=== PATIENT | female | born 1990 | race Caucasian/White ===

== ENCOUNTER → 2020-11-07 13:27 | Outpatient (CLI) | payer OTHER, SELFPAY ==
[2020-11-07 20:00] LABS: Add Manual Diff / Slide Review NO; Basophils Absolute Auto 100 /uL (0-100); Basophils Percent Auto 0.6 % (0-2); Eosinophils Absolute Auto 100 /uL (0-450); Eosinophils Percent Auto 0.7 % (2-4); Hematocrit 40.3 % (36-46); Hemoglobin 13.5 g/dL (12.0-16.0); Lymphocytes Absolute Auto 2500 /uL (1100-4500); Lymphocytes Percent Auto 28.6 % (25-40); Mean Corpuscular HGB Conc 33.4 % (30-36); Mean Corpuscular Hemoglobin 29.3 PG (26-34); Mean Corpuscular Volume 87.7 fL (80-100); Monocytes Absolute Auto 400 /uL (0-900); Monocytes Percent Auto 4.9 % (3-14); Neutrophils Absolute Auto 5800 /uL (1500-7000); Neutrophils Percent Auto 65.2 % (50-75); Platelet Count 172 X10^3/uL (150-400); White Blood Cell Count 8.9 X10^3/uL (4.5-11.0)
[2020-11-07 20:15] LABS: Alanine Aminotransferase 20 IU/L (<35); Albumin 4.7 g/dL (3.5-5.0); Albumin Globulin Ratio 1.9 (1.0-2.8); Alkaline Phosphatase 54 U/L (38-126); Aspartate Aminotransferase 29 IU/L (14-36); BUN Creatinine Ratio 17.4 (6-22); Bilirubin Total 0.4 mg/dL (0.2-1.3); Blood Urea Nitrogen 12 mg/dL (7-17); Calcium 9.9 mg/dL (8.4-10.2); Carbon Dioxide 27 mmol/L (22-32); Chloride 102 mmol/L (98-107); Estimated Glomerular Filt Rate > 60.0 mL/min (>60); Globulin 2.5 g/dL (1.7-4.1); Glucose 81 mg/dL (70-100); HEMOLYSIS < 15 (0-50); Potassium 4.4 mmol/L (3.4-5.1); Sodium 138 mmol/L (137-145); Total Protein 7.2 g/dL (6.3-8.2)
[2020-11-07 20:27] LABS: Follicle Stimulating Hormone 5.02 mIU/mL; Luteinizing Hormone 4.61 mIU/mL; Progesterone, Total 1.04 ng/mL
[2020-11-07 20:40] LABS: TSH w/ Reflex to FT4 1.27 uIU/mL (0.47-4.68)
[2020-11-07 20:42] LABS: Estradiol, Total 43.4 pg/mL
== END ==
PROVIDERS: PCP Physician Assistant; Visit Provider Physician Assistant
DX: E34.9 Endocrine disorder, unspecified (principal); N94.6 Dysmenorrhea, unspecified; R10.9 Unspecified abdominal pain; R11.2 Nausea with vomiting, unspecified
CPT/HCPCS: 80053; 82670; 83001; 83002; 84144; 84443; 85025

== ENCOUNTER → 2023-10-28 09:57 | Outpatient (CLI) | payer OTHER, SELFPAY ==
[2023-10-28 20:06] LABS: Add Manual Diff / Slide Review NO; Basophils Absolute Auto 100 /uL (0-100); Basophils Percent Auto 0.7 % (0-2); Eosinophils Absolute Auto 100 /uL (0-450); Eosinophils Percent Auto 0.9 % (2-4); Hematocrit 37.7 % (36-46); Hemoglobin 12.6 g/dL (12.0-16.0); Lymphocytes Absolute Auto 1500 /uL (1100-4500); Lymphocytes Percent Auto 16.6 % (25-40); Mean Corpuscular HGB Conc 33.5 % (30-36); Mean Corpuscular Hemoglobin 29.1 PG (26-34); Monocytes Absolute Auto 500 /uL (0-900); Monocytes Percent Auto 5.9 % (3-14); Neutrophils Absolute Auto 6900 /uL (1500-7000); Neutrophils Percent Auto 75.9 % (50-75); Platelet Count 193 X10^3/uL (150-400); Red Blood Cell Count 4.33 X10^6/uL (4.0-5.2); Red Cell Distribution Width 13.8 % (11.6-14.8); White Blood Cell Count 9.1 X10^3/uL (4.5-11.0)
[2023-10-28 20:45] LABS: Ferritin 15 ng/mL (6-137)
== END ==
PROVIDERS: PCP Physician Assistant; Referring Provider Nurse Practitioner Adult Health; Visit Provider Nurse Practitioner Adult Health
DX: Z34.91 Encounter for supervision of normal pregnancy, unspecified, first trimester (principal)
CPT/HCPCS: 82728; 85025

== ENCOUNTER 2024-08-16 14:17 | Outpatient (RCR) | payer OTHER, SELFPAY ==
--- NOTE | 2024-08-16 13:32 | PT.OIE ---
Current Diagnoses Other specified disorders of muscle (08/16/24) Past Medical History (Last Updated 07/11/24 @ 18:18 by Veronika Salazar MD) Anxiety Chicken pox (~1993) Depression History of chorioamnionitis History of Human papilloma virus (~2009) Painful menstrual periods (~2007) Visit Care Team Role Provider Type Veronika Salazar MD Attending Provider Physician Family Provider Primary Care Provider Referring Provider Specialty: Family Practice Address: [address] [place] [address], [facility] Email: [email or web address] Physical Therapy Initial Evaluation PT-OP-A Visit Information Start: 08/16/24 14:26 Freq: Status: Active Protocol: Document 08/16/24 14:30 [facility] (Rec: 08/16/24 15:12 [facility] [id number]) Out-Patient Physical Therapy Visit Information Visit Information Visit Type Initial Evaluation Visit Start Time 14:30 Visit Stop Time 15:15 Visit Number 1 Evaluation Information Evaluation Date 08/16/24 PT-OP-B Current Condition Start: 08/16/24 14:26 Freq: Status: Active Protocol: Document 08/16/24 14:30 [facility] (Rec: 08/16/24 15:12 [facility] [id number]) Current Condition History of Current Condition Onset Date 05/28/24 Current Complaints urinary stress incontinence, pelvic floor weakness, tailbone pain History of Current 33 year old female 11 weeks with vacuum Condition assisted delivery and a few days after delivery. pt has chief complaint of urinary incontinence and notices wetness throughout the day. She states she is not feeling when she is leaking. She is having pain during intercourse and is having some c/o tailbone pain . She feels her upper body and chest is really tight and that she is rounded forward more than prior to her . She has some c/o urethra irritation at the end of voiding. Treatment Goals Patient/Caregiver goals include improving pelvic floor strength and Goals decreasing urinary incontinence as well as decreasing tailbone pain PT-OP-C Subjective Start: 08/16/24 14:26 Freq: Status: Active Protocol: Document 08/16/24 14:30 [facility] (Rec: 08/16/24 16:50 [facility] [id number]) Patient Questionnaires Pelvic Pain and Urgency/Frequency Patient Symptom Scale Pelvic Pain Score 14 PT-OP-I Pelvic Floor Start: 08/16/24 14:26 Freq: Status: Active Protocol: Document 08/16/24 14:30 [facility] (Rec: 08/16/24 16:49 [facility] [id number]) Pelvic Floor Assessment Urine Pelvic Floor Surgery forceps delivery 05/28/24 Other Urinary urinary stress incontinence Symptoms Leakage Size Small Leakage Cause Cough Other Leakage Causes no activity changes leakage it is constant despite activity Nocturia 1 Pelvic Clock Pelvic Clock 12-3 Atrophy Pelvic Clock 3-6 Atrophy,Tenderness,Tightness Pelvic Clock 9-12 Atrophy Pelvic Clock Other tenderness over the right lateral wall of the levator ani with guarding and tightness noted Perineal Descent Resting Absent Bearing Absent Contraction Ability Voluntary Weak Contraction Manual Muscle 2 Testing Left Manual Muscle 2 Testing Right Manual Muscle 1 Testing Anterior Manual Muscle 2 Testing Posterior Muscle Endurance ( 5 Seconds) PT-OP-Q Treatments Start: 08/16/24 14:26 Freq: Status: Active Protocol: Document 08/16/24 14:28 [facility] (Rec: 08/16/24 15:12 [facility] [id number]) Therapeutic Exercises Supine Exercises hip abduction with resistance Equipment Used 2 x 10 reps Reps/Minutes level 3 theraband supine adductor assist with ball Reps/Minutes 10 reps x 5 -10 sec hold PT-OP-T Assessment and Plan Start: 08/16/24 14:26 Freq: Status: Active Protocol: Document 08/16/24 14:30 [facility] (Rec: 08/17/24 13:11 [facility] [id number]) Physical Therapy Assessment Rehab Potential Rehabilitation Excellent Potential Evaluation Complexity Number of Personal 1-2 Factors/ Comorbidities Number of Body 3 Systems Impaired Clinical Stable Presentation at Evaluation Impairments Impairments Activity Tolerance,Soft Tissue Mobility,Strength Goals 3 Impairment urinary incontinence that is constant throughout the day Short Term Goal (STG Jacque reports a overall reduction of urinary ) incontinence and is no longer feeling as if she is always wet STG Duration 5 weeks 2 Impairment Decreased endurance of the pelvic floor Short Term Goal (STG Jacque is able to sustain a pelvic floor contraction in ) supine x 10 seconds STG Duration 5 weeks 1 Impairment post pelvic floor weakness 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 She has chief complaints of pelvic floor weakness with urinary leakage that seems to be constant despite activity. Jacque reports she is not able to feel when she is leaking but not notice she is wet. She is also experiencing some urinary urgency. With exam today there is pelvic floor weakness throughout the levator ani. The anterior pelvic floor tests 1/5 MMT for the anterior pelvic floor and 2/5 for all other mallory of the levator ani. There is scar tissue and guarding on the right lateral wall of the levator ani with tenderness and decreased ability to relax the pelvic floor on the right side. Endurance for all mallory is limited. The perineum appears intact without any tearing. Jacque also reports feeling that her posture is forward including rounded shoulders and forward head. We talked about how changes your center of gravity and we will address the postural dysfunction as well in PT. Jacque is a good candidate for PT and she tolerated today's session well . She does note that she loses her insurance at the end of August so we will work on getting in all her visits by the end of August Physical Therapy Plan Frequency and Duration Frequency of 1x/Week Treatment Duration of 4 treatment (weeks) Plan of Care Start 08/16/24 Date Plan of Care End 09/12/24 Date Therapeutic Interventions Therapeutic Home Exercise Program,Neuromuscular Re-education, Interventions Patient/Caregiver Education,Self-Care/Home Management, Therapeutic Exercises Modalities Biofeedback Next Visit Focus/Plan Next Note Type Treatment Note Next Visit Plan Begin EMG biofeedback for pelvic floor strength and endurance training
--- NOTE | 2024-08-17 13:33 | PT.OPPOC ---
Physical, Occupational & Speech Therapy At [facility] Current Diagnoses Other specified disorders of muscle (08/16/24) Visit Care Team Role Provider Type Veronika Salazar MD Attending Provider Physician Family Provider Primary Care Provider Referring Provider Specialty: Family Practice Address: [address] [place] [address], [id number] Email: [email or web address] Plan Of Care PT-OP-B Current Condition Start: 08/16/24 14:26 Freq: Status: Active Protocol: Document 08/16/24 14:30 [facility] (Rec: 08/16/24 15:12 [facility] [id number]) Current Condition History of Current Condition Onset Date 05/28/24 Current Complaints urinary stress incontinence, pelvic floor weakness, tailbone pain History of Current 33 year old female 11 weeks with vacuum Condition assisted delivery and a few days after delivery. pt has chief complaint of urinary incontinence and notices wetness throughout the day. She states she is not feeling when she is leaking. She is having pain during intercourse and is having some c/o tailbone pain . She feels her upper body and chest is really tight and that she is rounded forward more than prior to her . She has some c/o urethra irritation at the end of voiding. Treatment Goals Patient/Caregiver goals include improving pelvic floor strength and Goals decreasing urinary incontinence as well as decreasing tailbone pain PT-OP-T Assessment and Plan Start: 08/16/24 14:26 Freq: Status: Active Protocol: Document 08/16/24 14:30 [facility] (Rec: 08/17/24 13:11 [facility] [id number]) Physical Therapy Assessment Rehab Potential Rehabilitation Excellent Potential Evaluation Complexity Number of Personal 1-2 Factors/ Comorbidities Number of Body 3 Systems Impaired Clinical Stable Presentation at Evaluation Impairments Impairments Activity Tolerance,Soft Tissue Mobility,Strength Goals 3 Impairment urinary incontinence that is constant throughout the day Short Term Goal (STG Jacque reports a overall reduction of urinary ) incontinence and is no longer feeling as if she is always wet STG Duration 5 weeks 2 Impairment Decreased endurance of the pelvic floor Short Term Goal (STG Jacque is able to sustain a pelvic floor contraction in ) supine x 10 seconds STG Duration 5 weeks 1 Impairment post pelvic floor weakness [facility] Goal (LTG) Jacque is able to improve pelvic floor strength by at least one muscle grade for improved support of the bladder LTG Duration 5 weeks Assessment Summary Assessment Jacque is a 33 year old female 11 weeks from a vacuum assisted delivery and a few days following delivery. She has chief complaints of pelvic floor weakness with urinary leakage that seems to be constant despite activity. Jacque reports she is not able to feel when she is leaking but not notice she is wet. She is also experiencing some urinary urgency. With exam today there is pelvic floor weakness throughout the levator ani. The anterior pelvic floor tests 1/5 MMT for the anterior pelvic floor and 2/5 for all other mallory of the levator ani. There is scar tissue and guarding on the right lateral wall of the levator ani with tenderness and decreased ability to relax the pelvic floor on the right side. Endurance for all mallory is limited. The perineum appears intact without any tearing. Jacque also reports feeling that her posture is forward including rounded shoulders and forward head. We talked about how changes your center of gravity and we will address the postural dysfunction as well in PT. Jacque is a good candidate for PT and she tolerated today's session well . She does note that she loses her insurance at the end of August so we will work on getting in all her visits by the end of August Physical Therapy Plan Frequency and Duration Frequency of 1x/Week Treatment Duration of 4 treatment (weeks) Plan of Care Start 08/16/24 Date Plan of Care End 09/12/24 Date Therapeutic Interventions Therapeutic Home Exercise Program,Neuromuscular Re-education, Interventions Patient/Caregiver Education,Self-Care/Home Management, Therapeutic Exercises Modalities Biofeedback Next Visit Focus/Plan Next Note Type Treatment Note Next Visit Plan Begin EMG biofeedback for pelvic floor strength and endurance training Plan of Care Dates Plan of Care Start Date 08/16/24 Plan of Care End Date 09/12/24 Electronically Signed by: Melissa Krishnan, PT 08/17/24 [id number] If you are in agreement with this Plan of Care, please return a signed and dated copy. I have reviewed this Plan of Care and certify that the skilled therapy services above are required to meet the patient?s needs. Physician Signature Date Printed Name and Credentials Clinical Instructor Signature Printed Name and Credentials
--- NOTE | 2024-09-06 17:01 | PT.OPDS ---
Current Diagnoses Other specified disorders of muscle (08/16/24) Visit Care Team Role Provider Type Veronika Salazar MD Attending Provider Physician Family Provider Primary Care Provider Referring Provider Specialty: Family Practice Address: [address] [place] [address], [facility] Email: [email or web address] Visit Number Visit Number 1 Discharge Summary PT-OP-B Current Condition Start: 08/16/24 14:26 Freq: Status: Active Protocol: Document 08/16/24 14:30 [facility] (Rec: 08/16/24 15:12 [facility] [id number]) Current Condition History of Current Condition Onset Date 05/28/24 Current Complaints urinary stress incontinence, pelvic floor weakness, tailbone pain History of Current 33 year old female 11 weeks with vacuum Condition assisted delivery and a few days after delivery. pt has chief complaint of urinary incontinence and notices wetness throughout the day. She states she is not feeling when she is leaking. She is having pain during intercourse and is having some c/o tailbone pain . She feels her upper body and chest is really tight and that she is rounded forward more than prior to her . She has some c/o urethra irritation at the end of voiding. Treatment Goals Patient/Caregiver goals include improving pelvic floor strength and Goals decreasing urinary incontinence as well as decreasing tailbone pain PT-OP-C Subjective Start: 08/16/24 14:26 Freq: Status: Active Protocol: Document 08/16/24 14:30 [facility] (Rec: 08/16/24 16:50 [facility] [id number]) Patient Questionnaires Pelvic Pain and Urgency/Frequency Patient Symptom Scale Pelvic Pain Score 14 PT-OP-I Pelvic Floor Start: 08/16/24 14:26 Freq: Status: Active Protocol: Document 08/16/24 14:30 [facility] (Rec: 08/16/24 16:49 [facility] [id number]) Pelvic Floor Assessment Urine Pelvic Floor Surgery forceps delivery 05/28/24 Other Urinary urinary stress incontinence Symptoms Leakage Size Small Leakage Cause Cough Other Leakage Causes no activity changes leakage it is constant despite activity Nocturia 1 Pelvic Clock Pelvic Clock 12-3 Atrophy Pelvic Clock 3-6 Atrophy,Tenderness,Tightness Pelvic Clock 9-12 Atrophy Pelvic Clock Other tenderness over the right lateral wall of the levator ani with guarding and tightness noted Perineal Descent Resting Absent Bearing Absent Contraction Ability Voluntary Weak Contraction Manual Muscle 2 Testing Left Manual Muscle 2 Testing Right Manual Muscle 1 Testing Anterior Manual Muscle 2 Testing Posterior Muscle Endurance ( 5 Seconds) PT-OP-T Assessment and Plan Start: 08/16/24 14:26 Freq: Status: Active Protocol: Document 09/06/24 16:55 [facility] (Rec: 09/06/24 17:01 [facility] [id number]) Physical Therapy Assessment Goals 3 Impairment urinary incontinence that is constant throughout the day Short Term Goal (STG Jacque reports a overall reduction of urinary ) incontinence and is no longer feeling as if she is always wet STG Duration 5 weeks 2 Impairment Decreased endurance of the pelvic floor Short Term Goal (STG Jacque is able to sustain a pelvic floor contraction in ) supine x 10 seconds STG Duration 5 weeks 1 Impairment post pelvic floor weakness Card Processing Clerk Goal (LTG) Jacque is able to improve pelvic floor strength by at least one muscle grade for improved support of the bladder LTG Duration 5 weeks Assessment Summary Assessment Jacque has not been seen since her initial eval as she was not able to make her appts due to ferry schedule from the [facility]. Her insurance runs out the end of this month therefore she is not able to continue PT. She has been doing her exercises and feels symptoms are a little better than they were the beginning of August. At this point she will be discharged from PT. Physical Therapy Plan Discharge Physical Therapy Discharge Reasons No Longer Attending PT Discharge Comments pt was unable to make appts due to the ferry schedule and she no longer has insurance to cover PT visits
== END 2025-03-15 10:56 | disposition home or self-care (01) ==
LOC: PHYS 14:17
PROVIDERS: Family Provider Family Medicine; PCP Family Medicine; Referring Provider Family Medicine; Visit Provider Family Medicine
DX: M62.89 Other specified disorders of muscle (principal)
CPT/HCPCS: 97110; 97161